=== PATIENT | female | born 1955 | race Caucasian/White ===

== ENCOUNTER 2018-04-08 16:21 | Emergency (ER) | payer BC ==
--- NOTE | 2018-04-08 16:50 | EDM.PDOC ---
ED HPI GENERAL MEDICAL PROBLEM - General Chief Complaint: ENT Problem Stated Complaint: SORE THROAT Time Seen by Provider: 04/08/18 16:50 Source of Information: Reports: Patient History Limitations: Reports: No Limitations - History of Present Illness INITIAL COMMENTS - FREE TEXT/NARRATIVE: HISTORY AND PHYSICAL: History of present illness: Patient is a 62-year-old female here with complaint of not feeling well x 2 days. She states she's felt feverish with chills, sore throat, cough, nasal congestion, body aches. Cough is nonproductive. She denies chest pain or shortness of breath, vomiting, diarrhea, abdominal pain. Past medical history of hypertension. Review of systems: As per history of present illness and below otherwise all systems reviewed and negative. Past medical history: As per history of present illness and as reviewed below otherwise noncontributory. Surgical history: As per history of present illness and as reviewed below otherwise noncontributory. Social history: No reported history of drug or alcohol abuse. Family history: As per history of present illness and as reviewed below otherwise noncontributory. Physical exam: General: Patient sitting comfortably in no acute distress and nontoxic appearing HEENT: Atraumatic, normocephalic, pupils reactive, negative for conjunctival pallor or scleral icterus, mucous membranes moist, throat clear, neck supple, nontender, trachea midline. No meningeal signs. Lungs: Clear to auscultation, breath sounds equal bilaterally, chest nontender. Heart: S1S2, regular, negative for clicks, rubs, or overt murmur. Abdomen: Soft, nondistended, nontender. Negative for masses or hepatosplenomegaly. Negative for costovertebral tenderness. Pelvis: Stable nontender. Genitourinary: Deferred. Rectal: Deferred. Extremities: Atraumatic, negative for cords or calf pain. Neurovascular unremarkable. Neuro: Awake, alert, oriented. Cranial nerves II through XII unremarkable. Cerebellum unremarkable. Motor and sensory unremarkable throughout. Exam nonfocal. Notes: Diagnostics: CBC, CMP, CXR, influenza Therapeutics: 1g Rocephin IM Prescriptions: Amoxicillin Impression: Strep pharyngitis, bronchitis Plan: 1. Take antibiotic as instructed 2. Follow up with primary care provider 3. Return to ED as needed as discussed Definitive disposition and diagnosis as appropriate pending reevaluation and review of above. - Related Data Allergies Allergy/AdvReac Type Severity Reaction Status Date / Time bupropion HCl Allergy Confusion Verified 12/31/14 08:28 [From Wellbutrin] Home Meds: Home Meds Amoxicillin 500 mg PO BID 10 Days #20 tab 04/08/18 [Rx] Cholecalciferol (Vitamin D3) [Vitamin D] 5,000 unit PO DAILY 04/08/18 [History] DULoxetine HCl [Cymbalta] 90 mg PO DAILY 04/08/18 [History] Folic Acid 1 mg PO DAILY 04/08/18 [History] Garlic 1,000 mg PO DAILY 04/08/18 [History] Krill Oil 4,000 mg PO DAILY 04/08/18 [History] L.acidoph,Paracasei, B.lactis [Probiotic] 1 cap PO DAILY 04/08/18 [History] Metoprolol Succinate [Toprol XL] 200 mg PO DAILY 04/08/18 [History] Verapamil [Calan SR] 120 mg PO DAILY 04/08/18 [History] hydroCHLOROthiazide [Hydrochlorothiazide] 25 mg PO DAILY 04/08/18 [History] Past Medical History Other Musculoskeletal History: RIGHT HIP PAIN & WOODS ED ROS ENT - Review of Systems Review Of Systems: ROS reveals no pertinent complaints other than HPI. ED EXAM, ENT - Physical Exam Exam: See Below (see dictation) Course - Vital Signs Last Recorded V/S: Last Vital Signs Temp 99.5 F 04/08/18 17:41 Pulse 105 H 04/08/18 16:49 Resp 20 04/08/18 16:49 BP 147/87 H 04/08/18 16:49 Pulse Ox 93 L 04/08/18 16:49 - Orders/Labs/Meds Orders: Active Orders 24 hr Category Date Time Status CULTURE BLOOD [BC] Stat Lab 04/08/18 17:25 Ordered CULTURE BLOOD [BC] Stat Lab 04/08/18 17:25 Ordered Blood Culture x2 Reflex Set [OM.PC] Stat Oth 04/08/18 17:25 Ordered Labs: Laboratory Tests 04/08/18 04/08/18 Range/Units 17:05 17:05 WBC 17.79 H (4.0-11.0) K/uL RBC 4.52 (4.30-5.90) M/uL Hgb 13.7 (12.0-16.0) g/dL Hct 41.2 (36.0-46.0) % MCV 91.2 (80.0-98.0) fL MCH 30.3 (27.0-32.0) pg MCHC 33.3 (31.0-37.0) g/dL RDW Std Deviation 45.2 (28.0-62.0) fl RDW Coeff of Vero 14 (11.0-15.0) % Plt Count 144 L (150-400) K/uL MPV 8.70 (7.40-12.00) fL Neut % (Auto) 88.8 H (48.0-80.0) % Lymph % (Auto) 3.5 L (16.0-40.0) % [place] % (Auto) 7.4 (0.0-15.0) % Eos % (Auto) 0.2 (0.0-7.0) % Baso % (Auto) 0.1 (0.0-1.5) % Neut # (Auto) 15.8 H (1.4-5.7) K/uL Lymph # (Auto) 0.6 (0.6-2.4) K/uL [place] # (Auto) 1.3 H (0.0-0.8) K/uL Eos # (Auto) 0.0 (0.0-0.7) K/uL Baso # (Auto) 0.0 (0.0-0.1) K/uL Nucleated RBC % 0.0 /100WBC Nucleated RBCs # 0 K/uL Sodium 137 (136-145) mmol/L Potassium 3.8 (3.5-5.1) mmol/L Chloride 103 (98-107) mmol/L Carbon Dioxide 27.7 (21.0-32.0) mmol/L BUN 15 (7.0-18.0) mg/dL Creatinine 1.0 (0.6-1.0) mg/dL Est Cr Clr Drug Dosing 54.60 mL/min Estimated GFR (MDRD) 56.2 ml/min Glucose 141 H (74-106) mg/dL Calcium 9.4 (8.5-10.1) mg/dL Total Bilirubin 0.8 (0.2-1.0) mg/dL AST 31 (15-37) IU/L ALT 34 (14-63) IU/L Alkaline Phosphatase 68 (46-116) U/L Total Protein 6.7 (6.4-8.2) g/dL Albumin 3.3 L (3.4-5.0) g/dL Globulin 3.4 (2.6-4.0) g/dL Albumin/Globulin Ratio 1.0 (0.9-1.6) Meds: Medications Discontinued Medications Generic Name Dose Route Start Last Admin Trade Name Shavon PRN Reason Stop Dose Admin Ceftriaxone Sodium 1 gm/ 4 mls @ 4 mls/sec 04/08/18 17:36 04/08/18 17:50 Lidocaine HCl IM 04/08/18 17:37 4 mls/sec ONETIME ONE Administration Departure - Departure Time of Disposition: 18:00 Disposition: Home, Self-Care 01 Condition: Good Clinical Impression: Strep pharyngitis, Bronchitis - Discharge Information Prescriptions: Amoxicillin 500 mg PO BID 10 Days #20 tab Referrals: PCP,Unknown [Primary Care Provider] - Forms: ED Department Discharge Additional Instructions: The following information is given to patients seen in the emergency department who are being discharged to home. This information is to outline your options for follow-up care. We provide all patients seen in our emergency department with a follow-up referral. The need for follow-up, as well as the timing and circumstances, are variable depending upon the specifics of your emergency department visit. If you don't have a primary care physician on staff, we will provide you with a referral. We always advise you to contact your personal physician following an emergency department visit to inform them of the circumstance of the visit and for follow-up with them and/or the need for any referrals to a consulting specialist. The emergency department will also refer you to a specialist when appropriate. This referral assures that you have the opportunity for follow-up care with a specialist. All of these measure are taken in an effort to provide you with optimal care, which includes your follow-up. Under all circumstances we always encourage you to contact your private physician who remains a resource for coordinating your care. When calling for follow-up care, please make the office aware that this follow-up is from your recent emergency room visit. If for any reason you are refused follow-up, please contact the [facility] Emergency Department at and asked to speak to the emergency department charge nurse. [facility] [address] [place] [address] [facility] [address] [place] [address] 1. Take antibiotic as instructed 2. Follow up with primary care provider 3. Return to ED as needed as discussed - My Orders Last 24 Hours: My Active Orders 04/08/18 17:25 CULTURE BLOOD [BC] Stat CULTURE BLOOD [BC] Stat Blood Culture x2 Reflex Set [OM.PC] Stat - Assessment/Plan Last 24 Hours: My Active Orders 04/08/18 17:25 CULTURE BLOOD [BC] Stat CULTURE BLOOD [BC] Stat Blood Culture x2 Reflex Set [OM.PC] Stat
--- NOTE | 2018-04-08 17:19 | CR ---
HISTORY: Chest pain. Shortness of breath. TECHNIQUE: One view of the chest. COMPARISON: No prior. FINDINGS: Cardiac size and pulmonary vasculature within normal limits. No lung infiltrate or pulmonary edema. No pneumothorax or pleural effusion. No acute bony abnormality. IMPRESSION: No acute cardiopulmonary disease. Dictated by Octavio Cuello MD @ 04/08/2018 5:17:54 PM Dictated by: Octavio Cuello MD @ 04/08/2018 17:18:01 (Electronically Signed)
[2018-04-08] MEDS ORDERED: cefTRIAXone 1 GM in Lidocaine 1% 4 ML IM ONE (17:36)
[2018-04-08 18:15] VITALS: BP 145/88
== END 2018-04-08 18:15 | disposition home or self-care (01) ==
LOC: MW.ED 16:21
DX: J02.0 Streptococcal pharyngitis (principal); J40 Bronchitis, not specified as acute or chronic; Z88.8 Allergy status to other drugs, medicaments and biological substances; Z79.899 Other long term (current) drug therapy
CPT/HCPCS: 36415; 71045; 80053; 85025; 87040; 87804; 87880; 96372; 99283; J0696; J2001

== ENCOUNTER 2018-10-05 07:43 | Day surgery (SDC) | payer BC ==
[2018-10-04 10:53] LABS: BLOOD UREA NITROGEN,BUN 20 mg/dL (7.0-18.0); CARBON DIOXIDE,CO2 30.8 mmol/L (21.0-32.0); CHLORIDE,CL 109 mmol/L (98-107); GLUCOSE RANDOM 121 mg/dL (74-106); POTASSIUM,K 4.3 mmol/L (3.5-5.1); SODIUM,NA 147 mmol/L (136-145)
[~2018-10-05 07:43] MED LIST: Sodium Chloride 0.9% 10 ML SDV IV PRN; Sodium Chloride 0.9% 10 ML Syringe FLUSH PRN; Sodium Chloride 0.9% 2.5 ML Syringe FLUSH PRN; ceFAZolin 2 GM in Premix Bag 1 BAG IV ONE
[2018-10-05] MEDS ORDERED: Lactated Ringers 1,000 ML IV SCH (07:45)
[2018-10-05] MEDS ORDERED: Fluorescein 5 ML Vial ONE (08:05)
--- NOTE | 2018-10-05 09:36 | PCM.PREANE ---
Preanesthetic Assessment - Anesthesia/Transfusion/Family Hx Anesthesia History: Prior Anesthesia Without Reaction Family History of Anesthesia Reaction: No Transfusion History: No Prior Transfusion(s) Intubation History: Unknown - Review of Systems General: No Symptoms Pulmonary: No Symptoms Cardiovascular: No Symptoms Gastrointestinal: No Symptoms Neurological: No Symptoms Other: Reports: None - Physical Assessment O2 Sat by Pulse Oximetry: 95 Respiratory Rate: 16 Vital Signs: Last Vital Signs Temp 36.2 C 10/05/18 08:46 Pulse 66 10/05/18 08:46 Resp 16 10/05/18 08:46 BP 105/61 10/05/18 08:46 Pulse Ox 95 10/05/18 08:46 Height: 5 ft 6 in Weight: 118.388 kg ASA Class: 2 Mental Status: Alert & Oriented x3 Airway Class: Mallampati = 2 Dentition: Reports: Normal Dentition Thyro-Mental Finger Breadths: 2 Mouth Opening Finger Breadths: 3 ROM/Head Extension: Limited/Partial Lungs: Clear to Auscultation, Normal Respiratory Effort Cardiovascular: Regular Rate, Regular Rhythm - Lab Values: Laboratory Last Values WBC 8.01 K/uL (4.0-11.0) 10/04/18 10:24 RBC 4.93 M/uL (4.30-5.90) 10/04/18 10:24 Hgb 14.9 g/dL (12.0-16.0) 10/04/18 10:24 Hct 46.2 % (36.0-46.0) H 10/04/18 10:24 MCV 93.7 fL (80.0-98.0) 10/04/18 10:24 MCH 30.2 pg (27.0-32.0) 10/04/18 10:24 MCHC 32.3 g/dL (31.0-37.0) 10/04/18 10:24 RDW Std Deviation 46.4 fl (28.0-62.0) 10/04/18 10:24 RDW Coeff of Vero 14 % (11.0-15.0) 10/04/18 10:24 Plt Count 217 K/uL (150-400) 10/04/18 10:24 MPV 9.00 fL (7.40-12.00) 10/04/18 10:24 Nucleated RBC % 0.0 /100WBC 10/04/18 10:24 Nucleated RBCs # 0 K/uL 10/04/18 10:24 Sodium 147 mmol/L (136-145) H 10/04/18 10:24 Potassium 4.3 mmol/L (3.5-5.1) 10/04/18 10:24 Chloride 109 mmol/L (98-107) H 10/04/18 10:24 Carbon Dioxide 30.8 mmol/L (21.0-32.0) 10/04/18 10:24 BUN 20 mg/dL (7.0-18.0) H 10/04/18 10:24 Creatinine 0.8 mg/dL (0.6-1.0) 10/04/18 10:24 Est Cr Clr Drug Dosing 68.26 mL/min 10/04/18 10:24 Estimated GFR (MDRD) > 60.0 ml/min 10/04/18 10:24 Glucose 121 mg/dL (74-106) H 10/04/18 10:24 Calcium 9.7 mg/dL (8.5-10.1) 10/04/18 10:24 HCG, Qual NEGATIVE (NEG) 10/04/18 10:24 Blood Type O POSITIVE 10/04/18 10:24 Antibody Screen NEGATIVE 10/04/18 10:24 - Allergies Allergies/Adverse Reactions: Allergies Allergy/AdvReac Type Severity Reaction Status Date / Time bupropion HCl Allergy Anxiety Verified 10/05/18 08:43 [From Wellbutrin] - Blood Blood Available: No - Anesthesia Plan Pre-Op Medication Ordered: None - Acknowledgements Anesthesia Type Planned: General Anesthesia Pt an Appropriate Candidate for the Planned Anesthesia: Yes Alternatives and Risks of Anesthesia Discussed w Pt/Guardian: Yes Pt/Guardian Understands and Agrees with Anesthesia Plan: Yes PreAnesthesia Questionnaire HEENT History: Reports: Other (See Below) Other HEENT History: wears glasses Cardiovascular History: Reports: Hypertension Gastrointestinal History: Reports: Other (See Below) Other Gastrointestinal History: occasional heartburn- no medications Musculoskeletal History: Reports: Osteoarthritis Other Musculoskeletal History: RIGHT HIP PAIN & WOODS Psychiatric History: Reports: Anxiety, Depression Endocrine/Metabolic History: Reports: Hypothyroidism, Obesity/BMI 30+ - Past Surgical History HEENT Surgical History: Reports: Tonsillectomy GI Surgical History: Reports: Colonoscopy Female Surgical History: Reports: Breast Biopsy Musculoskeletal Surgical History: Reports: Arthroscopic Knee (right) - SUBSTANCE USE Smoking Status *Q: Never Smoker Recreational Drug Use History: No - HOME MEDS Home Medications: Home Meds Cholecalciferol (Vitamin D3) [Vitamin D] 5,000 unit PO DAILY 04/08/18 [History] DULoxetine HCl [Cymbalta] 90 mg PO QAM 04/08/18 [History] Metoprolol Succinate [Toprol XL] 200 mg PO QAM 04/08/18 [History] hydroCHLOROthiazide [Hydrochlorothiazide] 25 mg PO QAM 04/08/18 [History] Calcium Carbonate [Calcium] 1,000 mg PO DAILY 10/03/18 [History] Folic Acid 0.4 mg PO DAILY 10/03/18 [History] Krill Oil 500 mg PO DAILY 10/03/18 [History] Levothyroxine 75 mcg PO BEDTIME 10/03/18 [History] Magnesium Oxide [Magnesium] 400 mg PO DAILY 10/03/18 [History] Verapamil HCl [Calan Sr] 180 mg PO QAM 10/03/18 [History] - CURRENT (IN HOUSE) MEDS Current Meds: Current Medications Lactated Ringer's (Ringers, Lactated) 1,000 mls @ 125 mls/hr IV ASDIRECTED REJI Last Admin: 10/05/18 08:43 Dose: 125 mls/hr Sodium Chloride (Saline Flush) 10 ml FLUSH ASDIRECTED PRN PRN Reason: Keep Vein Open Sodium Chloride (Saline Flush) 2.5 ml FLUSH ASDIRECTED PRN PRN Reason: Keep Vein Open Sodium Chloride (Normal Saline) 10 ml IV ASDIRECTED PRN PRN Reason: IV Use Discontinued Medications Fluorescein Sodium (Ak-Fluor) Confirm Administered Dose 5 ml .ROUTE .STK-MED ONE Stop: 10/05/18 08:06 Cefazolin Sodium/Dextrose 2 gm (/ Premix) 50 mls @ 100 mls/hr IV ONETIME ONE Stop: 10/04/18 10:13
[2018-10-05] MEDS ORDERED: Scopolamine 1.5 MG Transdermal Patch TRDERM PRN (09:37)
[2018-10-05] MEDS ORDERED: Rocuronium 100 MG/10 ML Syringe ONE (09:45)
[2018-10-05] MEDS ORDERED: Propofol 200 MG/20 ML SDV ONE (09:47)
[2018-10-05] MEDS ORDERED: fentaNYL 250 MCG/5 ML SDV ONE (09:48)
[2018-10-05] MEDS ORDERED: Midazolam 1 MG/ML 2 ML SDV ONE (09:48)
[2018-10-05] MEDS ORDERED: ceFAZolin/Dextrose,Iso-Osmotic 2 GM/50 ML Duplex Bag IV ONE (09:51)
[2018-10-05] MEDS ORDERED: Glycopyrrolate 0.2 MG/ML SDV ONE (10:21)
[2018-10-05] MEDS ORDERED: Promethazine 25 MG/ML SDV IM PRN (11:06)
[2018-10-05] MEDS ORDERED: Ondansetron 4 MG/2 ML SDV IVPUSH PRN (11:06)
[2018-10-05] MEDS ORDERED: Acetaminophen/oxyCODONE 325-5 MG Tab PO PRN (11:06)
[2018-10-05] MEDS ORDERED: Morphine 4 MG/ML Syringe IVPUSH PRN (11:06)
[2018-10-05] MEDS ORDERED: Ketorolac 30 MG/ML SDV IVPUSH ONE (11:06)
--- NOTE | 2018-10-05 11:10 | PCM.OPNOTE ---
- General Post-Op/Procedure Note Date of Surgery/Procedure: 10/05/18 Operative Procedure(s): TVH and Cystoscopy Post-Op Diagnosis: Same Anesthesia Technique: General ET Tube, General LMA Primary Surgeon: Julio Edward EBL in mLs: 100 Complications: None Condition: Good
[2018-10-05] MEDS: Ketorolac 30 MG/ML SDV IVPUSH PRN ×2 (11:56→20:23)
[2018-10-05] MEDS: fentaNYL 100 MCG/2 ML SDV IVPUSH PRN ×2 (12:00→12:11)
[2018-10-05] MEDS ORDERED: Midazolam 1 MG/ML 2 ML SDV IVPUSH ONE (12:13)
--- NOTE | 2018-10-05 12:45 | PCM.POSTAN ---
POST ANESTHESIA ASSESSMENT - MENTAL STATUS Mental Status: Alert, Oriented - RESPIRATORY Respiratory Status: Respiratory Rate WNL, Airway Patent, O2 Saturation Stable - CARDIOVASCULAR CV Status: Pulse Rate WNL, Blood Pressure Stable - GASTROINTESTINAL GI Status: No Symptoms - PAIN Pain Score: 5 (No anesthesia problems) - POST OP HYDRATION Hydration Status: Adequate & Stable - OBSERVATIONS Free Text/Narrative:: No anesthesia problems
--- NOTE | 2018-10-05 13:06 | OR ---
SURGEON: Julio Edward MD DATE OF PROCEDURE: PREOPERATIVE DIAGNOSES: Postmenopausal bleeding, adenomatous hyperplasia by endometrial biopsy. POSTOPERATIVE DIAGNOSES: Postmenopausal bleeding, adenomatous hyperplasia by endometrial biopsy. OPERATIONS PERFORMED: Total vaginal hysterectomy and cystoscopy. PRIMARY SURGEON: Julio Edward MD. MANAGER MEDIA RELATIONS: OR tech. ANESTHESIA: General with endotracheal intubation. ESTIMATED BLOOD LOSS: Less than 100 mL. COMPLICATIONS: None. FINDINGS: Uterus is small, about an 8-week size. The ovary really is atrophied and it is beyond the field of the operation, operative field, so I felt not removing them is acceptable because removing them could create operative problem for the patient. PROCEDURE IN DETAIL: The patient was brought to the OR, properly identified. After adequate level of anesthesia, the patient was placed in lithotomy position, prepped and draped in sterile fashion as usual. A short weighted speculum was placed in vagina. Straight catheter was used to empty the bladder and the bladder was emptied and then single-tooth tenaculum applied to the vagina. A circular incision in the vaginal mucosa around the cervix with electrocautery done. The posterior cul-de- sac was entered posteriorly and the posterior vagina was tagged with 2-0 Vicryl. Then, the short weighted speculum placed with extended long weighted speculum. Uterosacral ligament identified upon both sides, clamped with a curved Zeppelin, transected, and suture ligated with 2-0 Vicryl pop-off and held for further identification. The same thing done with the cardinal ligament. Then, the cervical vesicle space was entered, retracted, and anterior peritoneum was entered. Then, the broad ligament was clamped from both sides with curved Zeppelin, transected, and suture ligated with 2-0 Vicryl pop-off. The uterine vessel suture ligated at this step and then the uterus delivered posteriorly and superior pedicle was clamped with 90-degree Zeppelin, transected, and superior pedicle tied with a free tie on both sides. The ovaries were visible, but they really were beyond the field of the surgery, and I felt that going to pursue the ovary at this time will really create some more operative risk for the patient, so I decided not to do bilateral salpingo-oophorectomy. Then, after that, we proceeded to close the vaginal cuff with 2-0 Vicryl interrupted [id number] suture. While we were doing that, we asked Anesthesia to give the patient fluorescein, and cystoscopy was performed. The bladder was intact. Both ureteric orifices were seen with the dye coming from both of them and thus the patency of both ureters verified. Satisfied with these findings, the procedure was ended and instrument and sponge count was correct. The patient tolerated the procedure well, went to recovery room in stable general condition. CAROLYNE / MARTINA /[id number]
[2018-10-05] MEDS: Acetaminophen/oxyCODONE 325-5 MG Tab PO PRN (18:00)
[2018-10-06 05:41] LABS: BLOOD UREA NITROGEN,BUN 20 mg/dL (7.0-18.0); CARBON DIOXIDE,CO2 26.9 mmol/L (21.0-32.0); CHLORIDE,CL 104 mmol/L (98-107); GLUCOSE RANDOM 138 mg/dL (74-106); POTASSIUM,K 4.5 mmol/L (3.5-5.1); SODIUM,NA 138 mmol/L (136-145)
[2018-10-06 08:05] VITALS: BP 112/56; PULSE 65
[2018-10-06] MEDS: Acetaminophen/oxyCODONE 325-5 MG Tab PO PRN (08:27)
--- NOTE | 2018-10-06 10:30 | PCM.SURGPN ---
- General Info Date of Service: 10/06/18 POD#: 1 Functional Status: Reports: Pain Controlled - Review of Systems General: Reports: No Symptoms HEENT: Reports: No Symptoms Pulmonary: Reports: No Symptoms Cardiovascular: Reports: No Symptoms Gastrointestinal: Reports: No Symptoms Genitourinary: Reports: No Symptoms Musculoskeletal: Reports: No Symptoms Skin: Reports: No Symptoms Neurological: Reports: No Symptoms Psychiatric: Reports: No Symptoms - Patient Data Vitals - Most Recent: Last Vital Signs Temp 36.3 C 10/06/18 08:04 Pulse 65 10/06/18 08:04 Resp 16 10/06/18 09:13 BP 112/56 L 10/06/18 08:04 Pulse Ox 94 L 10/06/18 08:04 Weight - Most Recent: 118.388 kg I&O - Last 24 Hours: Intake & Output 10/05/18 10/06/18 10/06/18 22:59 06:59 14:59 Intake Total 900 1140 750 Output Total 1180 1450 Balance 900 -40 -700 Lab Results Last 24 Hrs: Laboratory Results - last 24 hr 10/06/18 10/06/18 Range/Units 05:00 05:00 WBC 13.93 H (4.0-11.0) K/uL RBC 4.14 L (4.30-5.90) M/uL Hgb 12.5 (12.0-16.0) g/dL Hct 38.9 (36.0-46.0) % MCV 94.0 (80.0-98.0) fL MCH 30.2 (27.0-32.0) pg MCHC 32.1 (31.0-37.0) g/dL RDW Std Deviation 46.8 (28.0-62.0) fl RDW Coeff of [place] 14 (11.0-15.0) % Plt Count 197 (150-400) K/uL MPV 9.00 (7.40-12.00) fL Neut % (Auto) 88.2 H (48.0-80.0) % Lymph % (Auto) 7.8 L (16.0-40.0) % [place] % (Auto) 4.0 (0.0-15.0) % Eos % (Auto) 0.0 (0.0-7.0) % Baso % (Auto) 0.0 (0.0-1.5) % Neut # (Auto) 12.3 H (1.4-5.7) K/uL Lymph # (Auto) 1.1 (0.6-2.4) K/uL [place] # (Auto) 0.6 (0.0-0.8) K/uL Eos # (Auto) 0.0 (0.0-0.7) K/uL Baso # (Auto) 0.0 (0.0-0.1) K/uL Nucleated RBC % 0.0 /100WBC Nucleated RBCs # 0 K/uL Sodium 138 (136-145) mmol/L Potassium 4.5 (3.5-5.1) mmol/L Chloride 104 (98-107) mmol/L Carbon Dioxide 26.9 (21.0-32.0) mmol/L BUN 20 H (7.0-18.0) mg/dL Creatinine 0.9 (0.6-1.0) mg/dL Est Cr Clr Drug Dosing 60.67 mL/min Estimated GFR (MDRD) > 60.0 ml/min Glucose 138 H (74-106) mg/dL Calcium 8.9 (8.5-10.1) mg/dL Med Orders - Current: Current Medications Lactated Ringer's (Ringers, Lactated) 1,000 mls @ 125 mls/hr IV ASDIRECTED [facility] Last Admin: 10/05/18 08:43 Dose: 125 mls/hr Ketorolac Tromethamine (Toradol) 30 mg IVPUSH Q6H PRN PRN Reason: Pain (severe 7-10) Stop: 10/10/18 11:06 Last Admin: 10/05/18 20:23 Dose: 30 mg Morphine Sulfate (Morphine) 4 mg IVPUSH Q2H PRN PRN Reason: Pain (severe 7-10) Last Admin: 10/05/18 13:47 Dose: 4 mg Ondansetron HCl (Zofran) 4 mg IVPUSH Q6H PRN PRN Reason: Nausea/Vomiting Last Admin: 10/05/18 22:23 Dose: 4 mg Oxycodone/Acetaminophen (Percocet 325-5 Mg) 1 tab PO Q4H PRN PRN Reason: Pain (moderate 4-6) Last Admin: 10/06/18 04:25 Dose: 1 tab Oxycodone/Acetaminophen (Percocet 325-5 Mg) 2 tab PO Q4H PRN PRN Reason: Pain (moderate 4-6) Last Admin: 10/06/18 08:27 Dose: 2 tab Promethazine HCl (Phenergan) 25 mg IM Q6H PRN PRN Reason: Nausea/Vomiting Scopolamine (Transderm-Scop) 1.5 mg TRDERM Q72H PRN PRN Reason: Nausea Last Admin: 10/05/18 09:45 Dose: 1.5 mg Sodium Chloride (Saline Flush) 10 ml FLUSH ASDIRECTED PRN PRN Reason: Keep Vein Open Sodium Chloride (Saline Flush) 2.5 ml FLUSH ASDIRECTED PRN PRN Reason: Keep Vein Open Sodium Chloride (Normal Saline) 10 ml IV ASDIRECTED PRN PRN Reason: IV Use Discontinued Medications Cefazolin Sodium/Dextrose (Ancef) Confirm Administered Dose 2 gm IV .STK-MED ONE Stop: 10/05/18 09:52 Fentanyl (Sublimaze) Confirm Administered Dose 250 mcg .ROUTE .STK-MED ONE Stop: 10/05/18 09:49 Fentanyl (Sublimaze) 50 mcg IVPUSH Q5M PRN PRN Reason: Pain (severe 7-10) Stop: 10/05/18 13:00 Last Admin: 10/05/18 12:11 Dose: 50 mcg Fluorescein Sodium (Ak-Fluor) Confirm Administered Dose 5 ml .ROUTE .STK-MED ONE Stop: 10/05/18 08:06 Glycopyrrolate (Robinul) Confirm Administered Dose 0.2 mg .ROUTE .STK-MED ONE Stop: 10/05/18 10:22 Cefazolin Sodium/Dextrose 2 gm (/ Premix) 50 mls @ 100 mls/hr IV ONETIME ONE Stop: 10/04/18 10:13 Last Admin: 10/05/18 18:20 Dose: Not Given Lidocaine HCl (Xylocaine-Mpf 1%) Confirm Administered Dose 5 mls @ as directed .ROUTE .STK-MED ONE Stop: 10/05/18 09:50 Acetaminophen (Ofirmev) Confirm Administered Dose 100 mls @ as directed IV .STK- MED ONE Stop: 10/05/18 10:19 Ketorolac Tromethamine (Toradol) 30 mg IVPUSH ONETIME ONE Stop: 10/05/18 11:07 Last Admin: 10/05/18 18:20 Dose: Not Given Midazolam HCl (Versed 1 Mg/Ml) Confirm Administered Dose 2 mg .ROUTE .STK-MED ONE Stop: 10/05/18 09:49 Midazolam HCl (Versed 1 Mg/Ml) 2 mg IVPUSH ONETIME ONE Stop: 10/05/18 12:14 Last Admin: 10/05/18 12:16 Dose: 1 mg Propofol (Diprivan 20 Ml) Confirm Administered Dose 200 mg .ROUTE .STK-MED ONE Stop: 10/05/18 09:48 Rocuronium [place] (Zemuron) Confirm Administered Dose 100 mg .ROUTE .STK-MED ONE Stop: 10/05/18 09:46 Succinylcholine Chloride (Succinylcholine Chloride) Confirm Administered Dose 200 mg .ROUTE .STK-MED ONE Stop: 10/05/18 09:46 - Exam Wound/Incisions: Healing Well General: Alert, Oriented HEENT: Pupils Equal Neck: Supple Lungs: Clear to Auscultation, Normal Respiratory Effort Cardiovascular: Regular Rate, Regular Rhythm GI/Abdominal Exam: Normal Bowel Sounds, Soft, Non-Tender, No Organomegaly, No Distention, No Abnormal Bruit, No Mass, Pelvis Stable Extremities: Normal Inspection, Normal Range of Motion, Non-Tender, No Pedal Edema, Normal Capillary Refill Skin: Warm, Dry, Intact Neurological: No New Focal Deficit Psy/Mental Status: Alert, Normal Affect, Normal Mood - Problem List Review Problem List Initiated/Reviewed/Updated: Yes - My Orders Last 24 Hours: Active Orders 24 hr Category Date Time Status Patient Status [ADT] Routine ADT 10/05/18 11:06 Active Antiembolic Devices [RC] PER UNIT ROUTINE Care 10/05/18 11:06 Active Notify Provider Vital Signs [RC] ASDIRECTED Care 10/05/18 11:06 Active Oxygen Therapy [RC] ASDIRECTED Care 10/05/18 11:06 Active RT Incentive Spirometry [RC] Q2HWA Care 10/05/18 11:06 Active Up With Assistance [RC] PER UNIT ROUTINE Care 10/05/18 11:06 Active Up ad Cherry [RC] PER UNIT ROUTINE Care 10/05/18 11:06 Active Urinary Catheter Removal [RC] Per Unit Routine Care 10/05/18 11:06 Active Vital Signs [RC] PER UNIT ROUTINE Care 10/05/18 11:06 Active Regular Diet [DIET] Diet 10/05/18 Dinner Active Acetaminophen/oxyCODONE [Percocet 325-5 MG] Med 10/05/18 11:06 Active 1 tab PO Q4H PRN Acetaminophen/oxyCODONE [Percocet 325-5 MG] Med 10/05/18 11:06 Active 2 tab PO Q4H PRN Ketorolac [Toradol] Med 10/05/18 11:06 Active 30 mg IVPUSH Q6H PRN Morphine Med 10/05/18 11:06 Active 4 mg IVPUSH Q2H PRN Ondansetron [Zofran] Med 10/05/18 11:06 Active 4 mg IVPUSH Q6H PRN Promethazine [Phenergan] Med 10/05/18 11:06 Active 25 mg IM Q6H PRN Scopolamine [Transderm-Scop] Med 10/05/18 09:37 Active 1.5 mg TRDERM Q72H PRN Peripheral IV Discontinue [OM.PC] Routine Oth 10/05/18 11:06 Ordered Sequential Compression Device [OM.PC] Per Unit Routine Oth 10/05/18 11:06 Ordered Resuscitation Status Routine Resus Stat 10/05/18 11:06 Ordered Medication Orders Lactated Ringer's (Ringers, Lactated) 1,000 mls @ 125 mls/hr IV ASDIRECTED [facility] Last Admin: 10/05/18 08:43 Dose: 125 mls/hr Ketorolac Tromethamine (Toradol) 30 mg IVPUSH Q6H PRN PRN Reason: Pain (severe 7-10) Stop: 10/10/18 11:06 Last Admin: 10/05/18 20:23 Dose: 30 mg Admin: 10/05/18 11:56 Dose: 30 mg Morphine Sulfate (Morphine) 4 mg IVPUSH Q2H PRN PRN Reason: Pain (severe 7-10) Last Admin: 10/05/18 13:47 Dose: 4 mg Ondansetron HCl (Zofran) 4 mg IVPUSH Q6H PRN PRN Reason: Nausea/Vomiting Last Admin: 10/05/18 22:23 Dose: 4 mg Oxycodone/Acetaminophen (Percocet 325-5 Mg) 1 tab PO Q4H PRN PRN Reason: Pain (moderate 4-6) Last Admin: 10/06/18 04:25 Dose: 1 tab Oxycodone/Acetaminophen (Percocet 325-5 Mg) 2 tab PO Q4H PRN PRN Reason: Pain (moderate 4-6) Last Admin: 10/06/18 08:27 Dose: 2 tab Admin: 10/05/18 18:00 Dose: 2 tab Promethazine HCl (Phenergan) 25 mg IM Q6H PRN PRN Reason: Nausea/Vomiting Scopolamine (Transderm-Scop) 1.5 mg TRDERM Q72H PRN PRN Reason: Nausea Last Admin: 10/05/18 09:45 Dose: 1.5 mg Sodium Chloride (Saline Flush) 10 ml FLUSH ASDIRECTED PRN PRN Reason: Keep Vein Open Sodium Chloride (Saline Flush) 2.5 ml FLUSH ASDIRECTED PRN PRN Reason: Keep Vein Open Sodium Chloride (Normal Saline) 10 ml IV ASDIRECTED PRN PRN Reason: IV Use - Assessment Assessment (Free Text/Narrative):: status post total vaginal hysterectomy and cystoscopy postoperative day #1 the patient is doing well no vaginal bleeding she is voiding she is on regular diet she is passing gas - Plan Plan (Free Text/Narrative):: The patient is discharged home today the postvasectomy instruction is given to the patient prescription for Narco 5 for postoperative pain is givens no restriction on her diet she have an appointment to come to the office 1 week after her discharge
== END 2018-10-06 11:19 | disposition home or self-care (01) ==
LOC: MW.SDS 07:43 → MW.MS 12:02 → MW.SDS 10-06 11:19
PROVIDERS: ATTEND Obstetrics & Gynecology
DX: D25.1 Intramural leiomyoma of uterus (principal); N80.0 Endometriosis of uterus; N95.0 Postmenopausal bleeding; F41.8 Other specified anxiety disorders; I10 Essential (primary) hypertension; E03.9 Hypothyroidism, unspecified; Z79.899 Other long term (current) drug therapy; Z88.8 Allergy status to other drugs, medicaments and biological substances
CPT/HCPCS: 36415; 58262; 80048; 84439; 84443; 84481; 84703; 85025; 85027; 86850; 86900; 86901; 88307; A9270; J0131; J0330; J0690; J1885; J2001; J2250; J2270; J2405; J2704; J3010; J3490; J7120; 00944

== ENCOUNTER 2021-10-28 06:28 | Day surgery (SDC) | payer MEDICARE, OTHER ==
[~2021-10-28 06:28] MED LIST changes: +Lactated Ringers 1,000 ML IV SCH; -Sodium Chloride 0.9% 10 ML SDV IV PRN; -Sodium Chloride 0.9% 10 ML Syringe FLUSH PRN; -Sodium Chloride 0.9% 2.5 ML Syringe FLUSH PRN; -ceFAZolin 2 GM in Premix Bag 1 BAG IV ONE
[2021-10-28] MEDS ORDERED: Lidocaine 2% 5 ML SDV ONE (07:22)
[2021-10-28] MEDS ORDERED: Propofol 200 MG/20 ML SDV ONE (07:22)
[2021-10-28] MEDS ORDERED: fentaNYL 100 MCG/2 ML SDV ONE (07:22)
[2021-10-28] MEDS ORDERED: ePHEDrine 50 MG/ML SDV ONE (08:02)
[2021-10-28] MEDS ORDERED: Phenylephrine HCl In 0.9% NaCl 1 MG/10 ML Vial ONE (08:21)
[2021-10-28 08:55] VITALS: BP 113/62; PULSE 51
== END 2021-10-28 09:15 | disposition home or self-care (01) ==
LOC: MW.SDS 06:28
PROVIDERS: ATTEND Surgery
DX: Z12.11 Encounter for screening for malignant neoplasm of colon (principal); K64.8 Other hemorrhoids; I10 Essential (primary) hypertension; E78.00 Pure hypercholesterolemia, unspecified; F41.8 Other specified anxiety disorders; E55.9 Vitamin D deficiency, unspecified; E03.9 Hypothyroidism, unspecified; E66.9 Obesity, unspecified; M19.90 Unspecified osteoarthritis, unspecified site; Z68.30 Body mass index [BMI] 30.0-30.9, adult; Z88.8 Allergy status to other drugs, medicaments and biological substances; Z79.899 Other long term (current) drug therapy; Z90.710 Acquired absence of both cervix and uterus; Z98.890 Other specified postprocedural states
CPT/HCPCS: G0121; J2704; J3010; J7120